=== PATIENT | female | born 1950 | race Caucasian/White ===

== ENCOUNTER 2016-12-20 13:23 | Emergency (ER) | payer OTHER, BC ==
[~2016-12-20] VITALS: Ht 165.1 cm; Wt 72.6 kg
[2016-12-20 13:28] VITALS: BP 130/80
[2016-12-20] MEDS ORDERED: NORCO 5/3251 TABLET PO (15:40)
== END 2016-12-20 16:13 | disposition home or self-care (01) ==
LOC: EME 13:23
DX: S62.621A Displaced fracture of middle phalanx of left index finger, initial encounter for closed fracture (principal); S62.622A Displaced fracture of middle phalanx of right middle finger, initial encounter for closed fracture; W17.89XA Other fall from one level to another, initial encounter; Y93.A5 Activity, obstacle course
CPT/HCPCS: 73130; 99281; 99283